=== PATIENT | female | born 1975 | race Two or more races ===

== ENCOUNTER 2024-09-21 13:31 | Emergency (ER) | payer MEDICAID, SELFPAY ==
[2024-09-21 13:55] VITALS: BP 123/85; PULSE 86; RESP 18; TEMP 36.6; O2SAT 98; BMI 32.4
--- NOTE | 2024-09-21 13:56 | XR_ITS ---
Examination: Abdomen sonogram, Limited Date and time of exam: September 21, 2024 1443 hours INDICATIONS: Onset right upper abdominal pain today Technique: Real-time manning scale transabdominal sonographic images of the upper abdomen obtained. Findings: Contracted gallbladder No gallstones Gallbladder wall 0.2 cm Common bile duct 0.3 cm Pancreatic head 3.5 cm Liver 15.2 cm fatty infiltration no focal liver lesions Normal hepatopedal portal venous flow Patent IVC IMPRESSION: Negative for cholelithiasis, negative for cholecystitis Mildly prominent pancreatic head, clinical correlation advised, consider CT abdomen pelvis post intravenous contrast follow-up
--- NOTE | 2024-09-21 13:57 | PD.EDRME ---
Rapid Medical Screening Exam RME Arrival date/time: 09/21/24 13:31 49-year-old female presents to the emergency department complaint of right upper quadrant abdominal pain Chief Complaint: Abdominal Pain Time Seen by Provider: 09/21/24 13:40 Vital signs: Vital Signs Temperature 98 F 09/21/24 13:55 Pulse Rate 86 09/21/24 13:55 Respiratory Rate 18 09/21/24 13:55 Blood Pressure 123/85 H 09/21/24 13:55 Pulse Oximetry (%) 98 09/21/24 13:55 Oxygen Delivery Method Room Air 09/21/24 13:55
[2024-09-21 14:34] LABS: Basophils % (Auto) 0 % (0-2.5); Eosinophils % (Auto) 0 % (0-10); Hematocrit 41.5 % (36.0-46.0); Hemoglobin 14.5 g/dL (12.0-16.0); Immature Granulocytes % (Auto) 0 % (0-0); Immature Granulocytes Auto 0.01 Thou/mm3 (0.00-0.00); Lymphocytes # (Auto) 2.4 Thou/mm3 (1.0-4.8); Lymphocytes % (Auto) 32 % (10-50); Mean Corpuscular HGB Conc 34.9 g/dl (31.0-37.0); Mean Corpuscular Hemoglobin 32.7 pg (25.0-35.0); Mean Corpuscular Volume 94 fL (80-100); Monocytes # (Auto) 0.5 Thou/mm3 (0.0-0.8); Monocytes % (Auto) 7 % (0-12); Neutrophils # (Auto) 4.7 Thou/mm3 (1.8-7.7); Neutrophils % (Auto) 61 % (37-80); Nucleated Red Blood Cell % 0 /100 WBC (0); Platelet Count 209 Thou/mm3 (140-440); Red Blood Count 4.43 Miln/mm3 (4.00-5.20); White Blood Count 7.6 Thou/mm3 (3.6-11.0)
[2024-09-21 15:01] LABS: Alanine Aminotransferase 21 U/L (10-49); Albumin, Serum 4.6 gm/dL (3.5-5.0); Albumin/Globulin Ratio 1.6 (1.2-2.2); Alkaline Phosphatase 85 U/L (46-116); Anion Gap 3 (7-16); Aspartate Amino Transferase 18 U/L (0-34); BUN/Creatinine Ratio 16 Ratio (12-20); Bilirubin,Total 0.4 mg/dL (0.3-1.2); Blood Urea Nitrogen 14 mg/dL (9-23); Calcium 9.8 mg/dL (8.3-10.6); Calcium (Corrected) 9.8 mg/dL (8.5-10.1); Carbon Dioxide 27.6 mMol/L (20.0-31.0); Chloride 106 mMol/L (98-107); Creatinine (Component) 0.9 mg/dL (0.6-1.3); Estimated Creatinine Clearance 84.9 mL/min (>60); Globulin 2.8 gm/dL (2.3-3.5); Glucose 106 mg/dL (74-106); Lipase 40 U/L (12-53); Osmolality,Calculated 274 (275-295); Potassium 3.8 mMol/L (3.4-5.1); Sodium 137 mMol/L (136-145); Total Protein 7.4 gm/dL (5.7-8.2); Troponin I < 0.020 ng/mL (0.0-0.045); eGFR > 60 See Note
[2024-09-21 15:02] LABS: Collection Type, Urine Clean Catch
[2024-09-21 15:15] LABS: Bilirubin,Urine Negative (Negative); Blood,Urine Negative (Negative); Color,Urine Yellow (Lt Yel-Yel); Culture Indicated,Urine Not Indicated; Glucose, Urine Negative (Negative); Ketones,Urine Negative (Negative); Leukocyte Esterase,Urine Negative (Negative); Nitrite,Urine Negative (Negative); Protein,Urine Trace (Neg - Trace); RBC,Urine 4 /hpf (0-3); Specific Gravity,Urine 1.032 (1.001-1.035); Squamous Epithelial Cell,Urine 16 /hpf (0-5); Urobilinogen,Urine Negative mg/dL (0.0-1.0); WBC,Urine 7 /hpf (0-5)
[2024-09-21 15:27] LABS: Clarity,Urine Hazy (Clear/Hazy)
[2024-09-21 15:29] LABS: HCG Qualitative,Urine Negative
[2024-09-21 15:57] VITALS: BP 155/100; PULSE 86; RESP 16; TEMP 36.8; O2SAT 98
--- NOTE | 2024-09-21 18:01 | EDNOTE_ITS ---
ED General RME/HPI General Chief complaint: Abdominal Pain Stated complaint: PAIN RIGHT SIDE Time Seen by Provider: 09/21/24 13:40 Arrival date/time: 09/21/24 13:31 CC right upper quadrant abdominal pain HPI onset 24 hours ago 3-4 on 10 scale radiation to the back no prior history of similar events denies any nausea vomiting or diarrhea no other complaints. RME / HPI RME / HPI narrative: 09/21/24 13:31 49-year-old female presents to the emergency department complaint of right upper quadrant abdominal pain Related Data Home Medications ?Medication ?Instructions ?Recorded ?Confirmed buspirone 10 mg tablet 10 mg PO HS 06/30/20 09/28/23 Previous Rx's ?Medication ?Instructions ?Recorded pantoprazole 20 mg tablet,delayed 20 mg PO QDAY #20 tabs 09/21/24 release (Protonix) Allergies Allergy/AdvReac Type Severity Reaction Status Date / Time tramadol [From Ultram] Allergy Intermediate Vomiting Verified 09/21/24 13:33 Review of Systems Review of Systems Narrative Review of Systems: GEN: No fever, no chills, no weight loss EYES: No discharge, no visual changes, no pain HEENT: No ear pain, no congestion, no sore throat PULM: No shortness of breath, no cough, no congestion CV: No chest pain, no dyspnea on exertion, no palpitations GI: No nausea, no vomiting, no diarrhea, +pain, no constipation : No frequency, no urgency, no dysuria MUSC/SKEL: No joint pain, no back pain SKIN: No rash PSYCH: No hallucinations, no depression HEME/LYMPH: No easy bleeding or bruising tendencies NEURO: No weakness, no headache Past Medical History Past Medical History CARDIAC: Positive Cardiac Disorders and Hypercholesterolemia; Negative Congestive Heart Failure RESPIRATORY: Positive Asthma and Bronchitis; Negative Chronic Obstructive Pulmonary Disease (COPD) GASTROINTESTINAL: Positive Gastrointestinal Disorders and Gastroesophageal Reflux Disease GENITOURINARY: Negative Renal Disease ENDOCRINE: Negative Diabetes Mellitus Type 1 or Diabetes Mellitus Type 2 HEMATOLOGIC: Negative Sickle Cell Disease PSYCHO/SOCIAL: Positive Anxiety Surgical History SURGICAL: Positive Tubal Ligation Social History SMOKING STATUS: Never smoker SUBSTANCE USE: does not use ED Exam Narrative Physical exam: [General: Obese not in any acute distress Head normocephalic HEENT: Within acceptable limits Neck is supple nontender Chest equal chest rise nontender to palpation Respiratory: Clear to auscultation no wheezes crackles or rubs CV: Rate rhythm is regular no murmurs rubs or clicks Abdomen is distended secondary to body habitus soft, very minor pain with deep patient in the right upper quadrant, no pain to all of the other quadrants or the pannus with palpation. Back: No CVA tenderness no spinous process tenderness from cervical spine thoracic and lumbar spine Skin: Intact no petechiae rash induration ulceration or crepitus Extremities: Moving all extremity against resistance cap refill less than 2 seconds neurosensory intact Neuro: Awake alert oriented x3 Glascow coma 15 no focal deficits] Course Quality Measures none Orders Category Date Time Status US gall bladder Stat Exams 09/21/24 13:56 Completed CBC Stat Lab 09/21/24 14:16 Completed Comprehensive Metabolic Panel Stat Lab 09/21/24 14:16 Completed HCG Qualitative,Urine Stat Lab 09/21/24 14:33 Completed Lipase Stat Lab 09/21/24 14:16 Completed Troponin I Stat Lab 09/21/24 14:16 Completed UA, C/S IF [Urinalysis, C/S if Indicated] Stat Lab 09/21/24 14:33 Completed Vital Signs Vital signs: Vital Signs Temperature 98 F 09/21/24 13:55 Pulse Rate 86 09/21/24 13:55 Respiratory Rate 18 09/21/24 13:55 Blood Pressure 123/85 H 09/21/24 13:55 Pulse Oximetry (%) 98 09/21/24 13:55 Oxygen Delivery Method Room Air 09/21/24 13:55 [facility] Patient data External records reviewed:: [facility] previous records Clinical information provided by:: patient Social determinants that could affect healthcare access:: none Patient has the following chronic illnesses:: Obesity How is presenting disease/condition affected by chronic disease/condition?: u neffected by Evaluation data The following diagnostics were reviewed and interpreted by me:: lab results and radiology exam(s) Lab and/or radiology exams considered but not ordered:: CBC shows no acute leukocytosis anemia thrombocytopenia CMP shows no acute electrolyte imbalances renal impairment transaminitis or T. bili elevation Lipase is normal Urine is negative Ultrasound of the gallbladder is negative for any acute finding. Interpretation Summary: Low index of suspicion for anything acute the patient be started on Protonix and told to start a bland diet to see if this alleviates the pain. Medications Medications considered but not ordered:: None Medication administrations:: None Consultations Consultation(s) initiated? (list below): No Diagnosis Differential Diagnosis ED Complaint MDM: Gastritis cholelithiasis cholelithiasis choledocholithiasis Most likely diagnosis given after review of the tests above:: Right upper quadrant abdominal pain Admission Indicated Admission indicated?: not indicated Explain why admission is indicated or not indicated:: Stable for outpatient follow-up Admission Request Was there a request for admission?: No Disposition Plan Disposition Plan: Discharge Discharge Attestation Discharge Attestation: The patient and all family members were given an opportunity to ask questions and understood the discharge instructions. Discharge instructions specifically effects, indications for sooner follow up or return to the emergency department, and the expected course of current diagnosis. Patient condition: Stable Medical Decision Making Differential Diagnosis Differential Diagnosis: Gastritis cholelithiasis cholelithiasis choledocholithiasis Lab Data 09/21/24 14:16 09/21/24 14:16 Labs: Lab Results 09/21/24 09/21/24 Range/Units 14:16 14:33 WBC 7.6 (3.6-11.0) Thou/mm3 RBC 4.43 (4.00-5.20) Miln/mm3 Hgb 14.5 (12.0-16.0) g/dL Hct 41.5 (36.0-46.0) % MCV 94 (80-100) fL MCH 32.7 (25.0-35.0) pg MCHC 34.9 (31.0-37.0) g/dl RDW Std Deviation 44.0 (36.4-46.3) fL Plt Count 209 (140-440) Thou/mm3 Neut % (Auto) 61 (37-80) % Lymph % (Auto) 32 (10-50) % [place] % (Auto) 7 (0-12) % Eos % (Auto) 0 (0-10) % Baso % (Auto) 0 (0-2.5) % Neut # (Auto) 4.7 (1.8-7.7) Thou/mm3 Lymph # (Auto) 2.4 (1.0-4.8) Thou/mm3 [place] # (Auto) 0.5 (0.0-0.8) Thou/mm3 Eos # (Auto) 0.0 (0.0-0.5) Thou/mm3 Baso # (Auto) 0.0 (0.0-0.2) Thou/mm3 Immature Gran # (Auto) 0.01 H (0.00-0.00) Thou/mm3 Absolute Nucleated RBC 0.00 (0.00-0.00) Thou/mm3 Immature Gran % 0 (0-0) % Nucleated RBC % 0 (0) /100 WBC Sodium 137 (136-145) mMol/L Potassium 3.8 (3.4-5.1) mMol/L Chloride 106 (98-107) mMol/L Carbon Dioxide 27.6 (20.0-31.0) mMol/L Anion Gap 3 L (7-16) BUN 14 (9-23) mg/dL Creatinine 0.9 (0.6-1.3) mg/dL Estim Creat Clear Calc 84.9 (>60) mL/min eGFR > 60 (60 - ) See Note BUN/Creatinine Ratio 16 (12-20) Ratio Glucose 106 (74-106) mg/dL Calculated Osmolality 274 L (275-295) Calcium 9.8 (8.3-10.6) mg/dL Corrected Calcium 9.8 (8.5-10.1) mg/dL Total Bilirubin 0.4 (0.3-1.2) mg/dL AST 18 (0-34) U/L ALT 21 (10-49) U/L Alkaline Phosphatase 85 (46-116) U/L Troponin I < 0.020 (0.0-0.045) ng/mL Total Protein 7.4 (5.7-8.2) gm/dL Albumin 4.6 (3.5-5.0) gm/dL Globulin 2.8 (2.3-3.5) gm/dL Albumin/Globulin Ratio 1.6 (1.2-2.2) Lipase 40 (12-53) U/L Ur Collection Type Clean Catch Urine Color Yellow (Lt Yel-Yel) Urine Clarity Hazy (Clear/Hazy) Urine pH 6.0 (5.0-7.0) Ur Specific [place] 1.032 (1.001-1.035) Urine Protein Trace (Neg - Trace) Urine Glucose (UA) Negative (Negative) Urine Ketones Negative (Negative) Urine Blood Negative (Negative) Urine Nitrite Negative (Negative) Urine Bilirubin Negative (Negative) Urine Urobilinogen (Auto) Negative (0.0-1.0) mg/dL Ur Leukocyte Esterase Negative (Negative) Urine RBC 4 H (0-3) /hpf Urine WBC 7 H (0-5) /hpf Ur Squamous Epith Cells 16 H (0-5) /hpf Urine Bacteria None (None) Ur Culture Indicated? Not Indicated Urine HCG, Qual Negative Discharge Plan Plan Patient Disposition: HOME (Self Care) Patient condition on transfer: Stable Prescriptions/Referrals Prescriptions/Med Rec: New pantoprazole [Protonix] 20 mg tablet,delayed release (DR/EC) 20 mg PO QDAY Qty: 20 0RF No Action buspirone 10 mg tablet 10 mg PO HS Patient Comments: TAKE 1 TABLET BY MOUTH TWICE A DAY FOR ANXIETY Referrals: Darryl Torres MD [Primary Care Provider] - In 1 week Problem List Clinical Impression: Right upper quadrant abdominal pain Patient/Caregiver Discharge Instructions Education Materials: Abdominal Pain Additional Instructions: Take the medications as prescribed bland diet follow-up with your primary care provider if there is a worsening of symptoms return the emergency room medially for further evaluation. Print Language: Danish Stand Alone Forms: Denise Award Info., Patient Portal Info Letter, Work/School Release PA/HOME AIDE Supervising Physician PA/HOME AIDE Supervising Physician: Renzo Solorio ENP
== END 2024-09-21 18:53 | disposition home or self-care (01) ==
PROVIDERS: Nurse Practitioner Primary Care; Emergency Provider Emergency Medicine; PCP Family Medicine
DX: R10.11 Right upper quadrant pain (principal)
CPT/HCPCS: 36415; 76705; 80053; 81001; 81025; 83690; 84484; 85025; 99284

== ENCOUNTER → 2025-02-14 | Outpatient (CLI) | payer MEDICAID, SELFPAY ==
--- NOTE | 2025-02-14 13:27 | XR_ITS ---
Examination: Shoulder,left, 3 views Technique: Shoulder AP internal rotation, AP external rotation, Y view shoulder, 3 views Exam date and time :February 14, 2025 1332 hrs. Indications: Patient fell one month Indication shoulder, shoulder pain. Findings: No fracture or shoulder dislocation No AC joint separation Impression: No shoulder fracture or dislocation
== END | disposition home or self-care (01) ==
LOC: CDIM 13:16
PROVIDERS: PCP Physician Assistant; Referring Provider Physician Assistant; Visit Provider Physician Assistant
DX: M25.512 Pain in left shoulder (principal)
CPT/HCPCS: 73030

== ENCOUNTER 2025-04-26 20:38 | Emergency (ER) | payer MEDICAID, SELFPAY ==
[2025-04-26 20:38] VITALS: BP 130/92; PULSE 79; RESP 17; TEMP 36.9; O2SAT 96
[2025-04-26 20:39] VITALS: BMI 35.8
[2025-04-26] MEDS: ONDANSETRON ODT 4 MG TABRAP PO (21:48)
[2025-04-26] MEDS: HYDROcodone/APAP 5/325 TABLET 1 TAB PO (21:48)
--- NOTE | 2025-04-27 02:58 | PD.EDEXREM ---
ED Extremity Problem RME/HPI General Chief complaint: Extremity Problem,Nontraumatic Stated complaint: LEFT ARM PAIN Time Seen by Provider: 04/26/25 21:26 Arrival date/time: 04/26/25 20:38 50F with no significant PMH presents to ED with 3 months of L shoulder pain. Pain is with worse with ROM. No CP, SOB, or initial fall/trauma. PCP did XRs, but nothing else. Limitations: no limitations Related Data Home Medications ?Medication ?Instructions ?Recorded ?Confirmed buspirone 10 mg tablet 10 mg PO HS 06/30/20 09/28/23 Previous Rx's ?Medication ?Instructions ?Recorded pantoprazole 20 mg tablet,delayed 20 mg PO QDAY #20 tabs 09/21/24 release (Protonix) Allergies Allergy/AdvReac Type Severity Reaction Status Date / Time tramadol (From [facility]) Allergy Intermediate Vomiting Verified 04/26/25 20:39 Review of Systems Review of Systems Systems Reviewed: All systems reviewed, normal except as documented Constitutional Constitutional: Reports system reviewed and no additional complaints, except as documented, Denies fever(s) and Denies headache(s) ENT Ears, Nose, Mouth, and Throat: Denies disequilibrium and Denies headache(s) Cardiovascular Cardiovascular: Reports system reviewed and no additional complaints, except as documented, Denies chest pain and Denies dyspnea Respiratory Respiratory: Reports system reviewed and no additional complaints, except as documented, Denies cough and Denies dyspnea Gastrointestinal Gastrointestinal: Reports system reviewed and no additional complaints, except as documented, Denies abdominal pain, Denies nausea and Denies vomiting Musculoskeletal Musculoskeletal: Reports as per HPI and Reports arthralgias Neurologic Neurologic: Reports system reviewed and no additional complaints, except as documented, Denies confusion, Denies disequilibrium and Denies headache(s) Psychiatric Psychiatric: Denies confusion Past Medical History Past Medical History CARDIAC: Positive Cardiac Disorders and Hypercholesterolemia; Negative Congestive Heart Failure RESPIRATORY: Positive Asthma and Bronchitis; Negative Chronic Obstructive Pulmonary Disease (COPD) GASTROINTESTINAL: Positive Gastrointestinal Disorders and Gastroesophageal Reflux Disease GENITOURINARY: Negative Renal Disease ENDOCRINE: Negative Diabetes Mellitus Type 1 or Diabetes Mellitus Type 2 HEMATOLOGIC: Negative Sickle Cell Disease PSYCHO/SOCIAL: Positive Anxiety Surgical History SURGICAL: Positive Tubal Ligation Social History SMOKING STATUS: Never smoker SUBSTANCE USE: does not use ED Exam General Limitations: Present no limitations General appearance: Present alert and in no apparent distress Head Head exam: Present atraumatic Eye Eye exam: Present normal appearance, PERRL and EOMI ENT ENT exam: Present normal exam, normal oropharynx and mucous membranes moist Neck Neck exam: Present normal inspection, full ROM and trachea midline Chest Chest inspection: Present normal inspection and symmetric chest wall rise Respiratory Respiratory exam: Present normal lung sounds bilaterally Cardiovascular Cardiovascular exam: Present regular rate, normal rhythm and normal heart sounds Abdominal Exam Abdominal exam: Present soft and normal bowel sounds Extremities Exam Extremities exam: Present normal inspection and full ROM Back Exam Back exam: Present normal inspection and full ROM Neurological Exam Neurological exam: Present alert, oriented X3 and CN II-XII intact Psychiatric Psychiatric exam: Present normal affect and normal mood Skin Skin exam: Present warm, dry, intact and normal color Course Quality Measures none Orders Category Date Time Status HYDROcodone*/APAP 5/325 [[place] 5/325] Med 04/26/25 21:26 Discontinued 1 tab PO X1 ONE Ondansetron Odt [Zofran Odt] Med 04/26/25 21:26 Discontinued 4 mg PO X1 ONE Vital Signs Vital signs: Vital Signs Temperature 98.4 F 04/26/25 20:38 Pulse Rate 79 04/26/25 20:38 Respiratory Rate 17 04/26/25 20:38 Blood Pressure 130/92 H 04/26/25 20:38 Pulse Oximetry (%) 96 04/26/25 20:38 Oxygen Delivery Method Room Air 04/26/25 20:38 O2 at 96% on RA and WNLs Extremity Problem MDM Narrative MDM Narrative:: 50F with no significant PMH presents to ED with 3 months of L shoulder pain. Pain is with worse with ROM. No CP, SOB, or initial fall/trauma. PCP did XRs, but nothing else. Physical exam reveals normal LUE exam. ROM of shoulder intact. Normal WOB. Patient is afebrile, calm, and alert. Meds and eap counselor given. Patient data External records reviewed:: [facility] previous records Clinical information provided by:: patient Social determinants that could affect healthcare access:: none Patient has the following chronic illnesses:: none How is presenting disease/condition affected by chronic disease/condition?: no chronic disease Evaluation data The following diagnostics were reviewed and interpreted by me:: other (specify) (none) Lab and/or radiology exams considered but not ordered:: not ordered Interpretation Summary: n/a Medications / Prescriptions Medications or Prescriptions considered but not ordered:: ordered Medication administrations:: Medication Administration History Discontinued Medications Hydrocodone Bitart/Acetaminophen (Hydrocodone/Apap 5/325 Tablet) 1 tab PO X1 ONE Stop: 04/26/25 21:27 Last Admin: 04/26/25 21:48 Dose: 1 tab Documented By: SELMA Ondansetron HCl (Ondansetron Odt 4 Mg Tabrap) 4 mg PO X1 ONE; Protocol Stop: 04/26/25 21:27 Last Admin: 04/26/25 21:48 Dose: 4 mg Documented By: SELMA above Consultations Consultation(s) initiated? (list below): No Diagnosis Extremity Problem Differential Diagnosis: herpes zoster, gout, cellulitis, superficial thrombophlebitis, deep venous thrombosis of upper extremity, lower extremity edema, deep vein thrombosis of lower extremity and other (chronic shoulder pain) Most likely diagnosis given after review of the tests above:: chronic shoulder pain Admission Indicated Admission indicated?: not indicated Admission Request Was there a request for admission?: No Disposition Plan Disposition Plan: Discharge Discharge Attestation Discharge Attestation: The patient and all family members were given an opportunity to ask questions and understood the discharge instructions. Discharge instructions specifically effects, indications for sooner follow up or return to the emergency department, and the expected course of current diagnosis. Patient condition: Stable Discharge Plan Plan Patient Disposition: HOME (Self Care) Discharge Disposition comment: Stable Prescriptions/Referrals Prescriptions/Med Rec: No Action buspirone 10 mg tablet 10 mg PO HS Patient Comments: TAKE 1 TABLET BY MOUTH TWICE A DAY FOR ANXIETY pantoprazole [Protonix] 20 mg tablet,delayed release (DR/EC) 20 mg PO QDAY Qty: 20 0RF Referrals: Emily Owens MD [Primary Care Provider] - In 1 week Problem List Clinical Impression: Chronic shoulder pain Patient/Caregiver Discharge Instructions Education Materials: ED Arthralgia, ED Shoulder Pain, Uncertain Cause Additional Instructions: Please follow-up with PCP within 24-48 hours and return immediately if symptoms worsen. If problem persists, recommend outpatient PT and/or MRI follow-up. In the meantime, rest, use ice/heat, and/or compression. Print Language: Citizen [place] Stand Alone Forms: Patient Portal Info Letter LELE/RALEIGH Supervising Physician YENY Supervising Physician: Dr. Martínez
== END 2025-04-26 21:50 | disposition home or self-care (01) ==
PROVIDERS: Emergency Provider Emergency Medicine; PCP Internal Medicine
DX: G89.29 Other chronic pain (principal); M25.512 Pain in left shoulder
CPT/HCPCS: 99283; Q0162; A9270

== ENCOUNTER 2025-09-29 09:21 | Outpatient (RCR) | payer MEDICAID, SELFPAY ==
--- NOTE | 2025-09-29 10:34 | PT.OIERPT ---
PT OP Initial Eval Patient Information Outpatient Physical Therapy Treatment Date: 09/29/25 Visit Reasons: PAIN IN LEFT SHOULDER Medical Diagnosis: Left Shoulder Pain Treatment Dx #1: Left Shoulder Mobility Deficits Treatment Dx #2: Left Shoulder Weakness Start of Care: 09/29/25 Date of Onset: 1 year ago Smoking Status Smoking Status: Never smoker Initial Assessment Subjective: Pt is a 50 y/o female reports of chronic left shoulder pain (05/18) ~ 1 year ago after she fell on the shoulder. Pt's xray negative no MRI has been done. Pt has limitation with overhead motions, lifting, chores, self care, cooking, cleaning, and performing recreational activities. Objective: Left Shoulder AROM Flexion: 120 deg Abduction: 105 deg External Rotation: 50 deg Internal Rotation: unable due to pain Left Shoulder PROM Flexion: 140 deg Abduction: 120 deg External 75 deg Internal Rotation: unable Left Shoulder MMTs: grossly 3-/5 Left Scapula MMTs: grossly 3-/5 Palpation: TTP supraspinatus tendon Assessment: Pt demonstrate left shoulder mobility deficits with pain leading to difficulty with ADLs. Pt will attempt physical therapy if pain persist Pt will be refer back to provider for further consultation Short Term and Jail Goals 1) Increase left shoulder AROM WFL in 6 wks to be able to perform overhead motions 2) Increase left shoulder MMTs: grossly 4-/5 in 6 wks to be able to perform chores 3) Decrease shoulder pain to 2/10 in 6 wks to be able to perform lifting activities 4) Increase left scapula MMTs grossly to 4-/5 in 6 wks to be able to perform recreational activities 5) Indep with HEP Treatment Plan 1) Manual Therapy 2) Therapeutic Activities 3) Therapeutic Exercises 4) Modalities (ice, heat) Frequency and Duration: 2 x wk for 6 wks Certification Dates: 09/29/25 to 12/30/25 Procedure Charges OP PT Eval Mod Complex 30 minutes: Yes
== END 2025-10-08 23:59 | disposition home or self-care (01) ==
LOC: CPTX 09:21
PROVIDERS: PCP Physician Assistant; Referring Provider Physician Assistant; Visit Provider Physician Assistant
DX: M25.512 Pain in left shoulder (principal); R53.1 Weakness; G89.29 Other chronic pain
CPT/HCPCS: 97162

== ENCOUNTER 2025-09-30 01:42 | Emergency (ER) | payer MEDICAID, SELFPAY ==
[2025-09-30 01:43] VITALS: BMI 36.0
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
--- NOTE | 2025-09-30 01:47 | PD.EDHAND ---
Upper Extremity Injury RME/HPI General Chief Complaint: Hand/Wrist Problems Stated Complaint: CAR DOOR SMASHED FINGER, RIGHT THUMB Time Seen by Provider: 09/30/25 01:47 Arrival date/time: 09/30/25 01:42 50F with history of asthma and anxiety presents to ED with R thumb pain after it was caught in a car door. Limitations: no limitations Related Data Home Medications ?Medication ?Instructions ?Recorded ?Confirmed buspirone 10 mg tablet 10 mg PO HS 06/30/20 09/28/23 Previous Rx's ?Medication ?Instructions ?Recorded pantoprazole 20 mg tablet,delayed 20 mg PO QDAY #20 tabs 09/21/24 release (Protonix) Allergies Allergy/AdvReac Type Severity Reaction Status Date / Time tramadol (From [facility]) Allergy Intermediate Vomiting Verified 09/30/25 01:43 Review of Systems Review of Systems Systems Reviewed: All systems reviewed, normal except as documented Musculoskeletal Musculoskeletal: Reports as per HPI and Reports arthralgias Past Medical History Past Medical History CARDIAC: Positive Cardiac Disorders and Hypercholesterolemia; Negative Congestive Heart Failure RESPIRATORY: Positive Asthma and Bronchitis; Negative Chronic Obstructive Pulmonary Disease (COPD) GASTROINTESTINAL: Positive Gastrointestinal Disorders and Gastroesophageal Reflux Disease GENITOURINARY: Negative Renal Disease ENDOCRINE: Negative Diabetes Mellitus Type 1 or Diabetes Mellitus Type 2 HEMATOLOGIC: Negative Sickle Cell Disease PSYCHO/SOCIAL: Positive Anxiety Surgical History SURGICAL: Positive Tubal Ligation Social History SMOKING STATUS: Never smoker SUBSTANCE USE: does not use ED Exam General Limitations: Present no limitations General appearance: Present alert and in no apparent distress Head Head exam: Present atraumatic Neck Neck exam: Present normal inspection, full ROM and trachea midline Chest Chest inspection: Present normal inspection and symmetric chest wall rise Extremities Exam Extremities exam: Present full ROM Expanded Upper Extremity Exam Hand exam: Present full ROM and subungual hematoma (R thumb) Neurological Exam Neurological exam: Present alert and oriented X3 Psychiatric Psychiatric exam: Present normal affect and normal mood Skin Skin exam: Present warm, dry, intact and normal color Course Quality Measures none Orders Category Date Time Status Splint / Immobilizer STAT Care 09/30/25 02:17 Active XR finger RT min 2V Stat Exams 09/30/25 01:45 Taken Vital Signs Vital signs: Vital Signs Temperature 98.1 F 09/30/25 01:59 Pulse Rate 79 09/30/25 01:59 Respiratory Rate 19 09/30/25 01:59 Blood Pressure 151/98 H 09/30/25 01:59 Pulse Oximetry (%) 96 09/30/25 01:59 Oxygen Delivery Method Room Air 09/30/25 01:59 O2 at 96% on RA and WNLs Extremity Injury MDM Narrative MDM Narrative:: 50F with history of asthma and anxiety presents to ED with R thumb pain after it was caught in a car door. Physical exam reveals small R thumb subungual hematoma. ROM intact. Patient is afebrile, Wet XR read unremarkable pending official report. 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 Patient data External records reviewed:: [facility] previous records Clinical information provided by:: patient Social determinants that could affect healthcare access:: mental health Patient has the following chronic illnesses:: anxiety and asthma How is presenting disease/condition affected by chronic disease/condition?: exacerbated by Evaluation data The following diagnostics were reviewed and interpreted by me:: radiology exam(s) Lab and/or radiology exams considered but not ordered:: ordered Interpretation Summary: above Medications / Prescriptions Medications or Prescriptions considered but not ordered:: not ordered Medication administrations:: n/a Consultations Consultation(s) initiated? (list below): No Diagnosis Upper Extremity Injury Differential Diagnosis: sprain and strain of wrist, fracture of wrist, finger sprain, dislocation of finger, Colles' fracture, fracture of hand and other (finger fx/pain ) Most likely diagnosis given after review of the tests above:: finger pain Admission Indicated Admission indicated?: not indicated Admission Request Was there a request for admission?: No Disposition Plan Disposition Plan: Discharge Discharge Attestation Discharge Attestation: The patient and all family members were given an opportunity to ask questions and understood the discharge instructions. Discharge instructions specifically effects, indications for sooner follow up or return to the emergency department, and the expected course of current diagnosis. Patient condition: Stable Discharge Plan Plan Patient Disposition: HOME (Self Care) Discharge Disposition comment: Stable Prescriptions/Referrals Prescriptions/Med Rec: No Action buspirone 10 mg tablet 10 mg PO HS Patient Comments: TAKE 1 TABLET BY MOUTH TWICE A DAY FOR ANXIETY pantoprazole [Protonix] 20 mg tablet,delayed release (DR/EC) 20 mg PO QDAY Qty: 20 0RF Problem List Clinical Impression: Finger pain Patient/Caregiver Discharge Instructions Education Materials: ED Finger Contusion, ED Fracture, Finger, Closed Additional Instructions: Please follow-up with PCP within 24-48 hours and return immediately if symptoms worsen. If problem persists, recommend outpatient PT and/or MRI follow-up. In the meantime, rest, use ice/heat, and/or compression. Print Language: Israeli Stand Alone Forms: Patient Portal Info Letter PA/ARTIFICIAL BREEDING TECHNICIAN Supervising Physician PA/ARTIFICIAL BREEDING TECHNICIAN Supervising Physician: Dr. Trevino
[2025-09-30 01:59] VITALS: BP 151/98; PULSE 79; RESP 19; TEMP 36.7; O2SAT 96
== END 2025-09-30 02:28 | disposition home or self-care (01) ==
PROVIDERS: Emergency Provider Emergency Medicine; PCP Physician Assistant
DX: S62.609A Fracture of unspecified phalanx of unspecified finger, initial encounter for closed fracture (principal); F41.9 Anxiety disorder, unspecified; W23.2XXA Caught, crushed, jammed or pinched between a moving and stationary object, initial encounter
CPT/HCPCS: 73140; 99282

== ENCOUNTER 2025-11-08 10:00 | Outpatient (RCR) | payer MEDICAID, SELFPAY ==
--- NOTE | 2025-10-10 10:29 | PT.ODAYNRPT ---
PT Outpatient Daily Note OP Daily Note Outpatient Physical Therapy Treatment Date: 10/10/25 Visit Reasons: LEFT SHOULDER PAIN Subjective: Pt's shoulder pain is the same and continues to hurt. Objective: Please see flow chart for list of ther ex performed Assessment: minimal changes with pain post PT session. Post heat helped with pain management Plan: Continue with PT Length of Time (minutes) of Treatment: 30 Minutes Procedure Charges Therapeutic Exercise 30 minutes: Yes
--- NOTE | 2025-10-12 10:13 | PT.ODAYNRPT ---
PT Outpatient Daily Note OP Daily Note Outpatient Physical Therapy Treatment Date: 10/12/25 Visit Reasons: LEFT SHOULDER PAIN Subjective: Pt reports L shoulder is sore and continues to be painful Objective: Please see flow sheet for ther ex list. Assessment: Interventions completed with pain, applied hot pack at end of session. Plan: Continue with pOC. Length of Time (minutes) of Treatment: 30 Minutes Procedure Charges Therapeutic Exercise 30 minutes: Yes
--- NOTE | 2025-10-25 11:04 | PT.ODAYNRPT ---
PT Outpatient Daily Note OP Daily Note Outpatient Physical Therapy Treatment Date: 10/25/25 Visit Reasons: LEFT SHOULDER PAIN Subjective: Pt reports L shoulder continues to be painful, no progress to report at this time. Objective: Please see flow sheet for ther ex list. Assessment: Pt demonstrates poor activity tolerance due to pain response. Plan: Continue with poC. Length of Time (minutes) of Treatment: 30 Minutes Procedure Charges Therapeutic Exercise 30 minutes: Yes
--- NOTE | 2025-11-06 11:40 | PT.ODAYNRPT ---
PT Outpatient Daily Note OP Daily Note Outpatient Physical Therapy Treatment Date: 11/06/25 Visit Reasons: LEFT SHOULDER PAIN Subjective: Pt's shoulder feels about the same and continues to have pain. Objective: Please see flow chart for list of ther ex performed Assessment: minimal changes with shoulder AROM in all plane due to pain. Post heat helped with pain Plan: Continue with PT Length of Time (minutes) of Treatment: 30 Minutes Procedure Charges Therapeutic Exercise 30 minutes: Yes
--- NOTE | 2025-11-08 10:50 | PT.ODS1RPT ---
PT OP Progress/Discharge Note Date of Service: 11/08/25 Progress Note/DC Note Progress Note/Discharge Note: DC Note Patient Information Visit Reasons: LEFT SHOULDER PAIN Medical Diagnosis: Left Shoulder Pain Treatment Dx #1: Left Shoulder Pain Service Continue Service or Discharge: Discharge Discharge Date: 11/08/25 Status Subjective: Pt continues to have left shoulder pain (05/18) with all ADLs. Pt has limitation with lifting, chores, self care, cooking cleaning, and performing recreational activities. At this time Pt will like to be release from physical therapy and will follow up with MD Objective: Left Shoulder AROM Flexion: 140 deg Abduction: 110 deg External Rotation: 75 deg Internal Rotation: 20 deg Left Shoulder MMTs: grossly 3/5 Left Scapula MMTs: grossly 3/5 Palpation: TTP supraspinatus Assessment: Pt demonstrate slight improvement with shoulder AROM and strength, however, minimal changes with pain leading to difficulty with ADLs. Pt will no longer benefit from physical therapy due to minimal progress towards goals. Recommend shoulder MRI to help rule in/out nature of pain. Pt was instructed on HEP last session and educated to continue exercises to maintain overall mobility. Pt performed all exercises safely, thank you for your referrals. Plan: D/C home with HEP and follow up with MD GOMEZ Recommend shoulder MRI Procedure Charges Therapeutic Exercise 30 minutes: Yes
== END 2025-11-08 23:59 | disposition home or self-care (01) ==
LOC: CPTX 10:00
PROVIDERS: PCP Physician Assistant; Referring Provider Physician Assistant; Visit Provider Physician Assistant
DX: M25.512 Pain in left shoulder (principal); R53.1 Weakness; G89.29 Other chronic pain
CPT/HCPCS: 97110